=== PATIENT | female | born 1975 | race Caucasian/White ===

== ENCOUNTER 2016-12-20 10:57 | Emergency (ER) | payer OTHER ==
[2016-12-20 11:28] LABS: MANUAL DIFF NEEDED? NO
[2016-12-20 11:30] LABS: BASO% 0.5 % (0.0-0.8); EOS# 0.15 X1000 (0.0-0.7); EOS% 2.5 % (0.0-10.0); HEMATOCRIT 36.1 % (37.0-47.0); HEMOGLOBIN 11.7 g/dL (12.0-16.0); IMM GRAN# 0.01 X1000 (0.0-0.04); IMM GRAN% 0.2 % (0.0-0.5); LYMPH% 28.1 % (20.5-51.1); MCH 27.3 PG (27-31); MCHC 32.4 g/dL (33-37); MCV 84.3 FL (81-99); MONO# 0.33 X1000 (0.11-0.59); MONO% 5.5 % (1.7-9.3); NEUT% 63.2 % (42.2-75.2); PLT 258 X1000 (130-400); RBC 4.28 XMIL (4.2-5.4)
[2016-12-20 11:42] LABS: URINE CULTURE PL NEEDED? NO; URINE SOURCE CLEAN CATCH
[2016-12-20 11:55] LABS: UR AMPHETAMINES QUAL NONE DETECTED (NONE DETECT); UR BARBITUATES QUAL NONE DETECTED (NONE DETECT); UR BENZODIAZEPIN QUAL NONE DETECTED (NONE DETECT); UR CANNABINOIDS QUAL NONE DETECTED (NONE DETECT); UR COCAINE QUAL NONE DETECTED (NONE DETECT); UR MDMA QUAL NONE DETECTED (NONE DETECT); UR METHADONE QUAL NONE DETECTED (NONE DETECT); UR METHAMPHETAMINE QUAL NONE DETECTED (NONE DETECT); UR OPIATES QUAL NONE DETECTED (NONE DETECT); UR OXYCODONE QUAL NONE DETECTED (NONE DETECT); UR PCP QUAL NONE DETECTED (NONE DETECT); UR TCA QUAL NONE DETECTED (NONE DETECT)
[2016-12-20 11:56] LABS: AGAP 9; ALBUMIN 4.3 g/dL (3.5-5.0); ALKALINE PHOSPHATASE 99 U/L (32-104); BUN 12 mg/dL (8-22); CALCIUM 9.3 mg/dL (8.8-10.2); CHLORIDE 103 mmol/L (98-107); COSMO 272; GOT 13 U/L (10-30); GPT 10 U/L (10-36); SODIUM 136 mmol/L (136-145); TCO2 24 mmol/L (25-35); TOTAL PROTEIN 7.2 g/dL (6.3-8.3)
[2016-12-20 11:58] LABS: BILIRUBIN URINE NEGATIVE (NEGATIVE); BLOOD URINE NEGATIVE (NEGATIVE); CLARITY SL. CLOUDY (CLEAR); COLOR YELLOW; GLUCOSE URINE NEGATIVE (NEGATIVE); LEUKOCYTES URINE NEGATIVE (NEGATIVE); NITRITE URINE NEGATIVE (NEGATIVE); PROTEIN URINE TRACE mg/dL (NEGATIVE); UROBILINOGEN URINE NORMAL
[2016-12-20] MEDS ORDERED: ZOFRAN ODT ONE (12:09)
[2016-12-20 12:10] LABS: URINE EPITHELIAL CELLS >10 /HPF (<10)
[2016-12-20 12:19] LABS: FREE T4 0.9 ng/dL (0.93-1.70)
[2016-12-20] MEDS ORDERED: ZOFRAN PO ONE (12:36)
--- NOTE | 2016-12-20 12:39 | PROVIDER DOCUMENTATION ---
HPI-Psychological Disorder - General Chief Complaint: Psych Stated Complaint: psych, si Time Seen by Provider: 12/20/16 11:57 Source: patient Allergies/Adverse Reactions: Patient Allergies Allergy/AdvReac Type Severity Reaction Status Date / Time cephalexin monohydrate * Allergy Severe ANAPHYLAXIS Verified 12/20/16 11:06 [From Keflex] orphenadrine citrate * Allergy Severe ANAPHYLAXIS Verified 12/20/16 11:06 [From Norflex] amoxicillin [Amoxicillin] Allergy Intermediate SWELLING Verified 12/20/16 11:06 codeine [Codeine] Allergy Intermediate SWELLING Verified 12/20/16 11:06 dicyclomine HCl * Allergy Intermediate SWELLING Verified 12/20/16 11:06 [From Bentyl] hydrocodone [Hydrocodone] Allergy Intermediate SWELLING/RA Verified 12/20/16 11: 06 SH hydromorphone HCl * Allergy Intermediate SWELLING Verified 12/20/16 11:06 [From Dilaudid] morphine Allergy Intermediate ITCHING Verified 12/20/16 11:06 prednisone Allergy Intermediate SWELLING Verified 12/20/16 11:06 risperidone Allergy Intermediate SWELLING Verified 12/20/16 11:06 tramadol Allergy Intermediate SWELLING Verified 12/20/16 11:06 AND ITCHING escitalopram oxalate * Allergy Mild ITCHING Verified 12/20/16 11:06 [From Lexapro] sertraline HCl * Allergy Mild ITCHING Verified 12/20/16 11:06 [From Zoloft] sulfamethoxazole Allergy SWELLING Verified 12/20/16 11:06 [From Bactrim] trimethoprim [From Bactrim] Allergy SWELLING Verified 12/20/16 11:06 Home Medications: Home Medication List Medication Instructions Recorded Confirmed Last Taken Type Omeprazole [Prilosec] 40 mg PO BID 09/05/15 12/20/16 09/15/16 History Albuterol Sulfate Inhaler 2 puff INH Q6H PRN PRN 07/02/16 12/20/16 07/03/16 History [Ventolin Hfa] Atenolol 25 mg PO QHS 07/02/16 12/20/16 09/14/16 History Gabapentin [Neurontin] 300 mg PO TID 07/02/16 12/20/16 09/15/16 History Meclizine [Antivert] 12.5 mg PO TID #15 tablet 09/15/16 Unknown Rx Fluconazole [Diflucan] 100 mg PO DAILY #7 tablet 12/20/16 Unknown Rx Loratadine [Claritin] 10 mg PO DAILY #30 tablet 12/20/16 Unknown Rx Venlafaxine HCl [Effexor] 25 mg PO DAILY 12/20/16 12/20/16 Unknown History - History of Present Illness-Psych Nature of Presenting Problem: Pt is a 41 yof with a hx of anxiety and bipolar disorder that presents to er with cc of SI this am. Pt reports she no longer wants to kill herself or is having thoughts states that she has had a recent medication change and that she is suppose to follow up with her doctor tomorrow to get her medication changed back to what it was. Denies SI or HI at this time. Pt does complain of itchying all over states she just had a recent sunburn and now has breaking of the skin from clawing. Onset/Duration: reports: this morning Timing: reports: still present Severity: reports: moderate Situational problems related to:: reports: N/A Previous psych related hospitalizations?: Yes Patient arrived by:: private car Similar Symptoms Previously?: Yes Recently seen or treated by another doctor?: Yes Review of Systems - Adult - REVIEW OF SYSTEMS - ADULT Constitutional: denies: chills, fever, fatique Eyes: reports: no symptoms reported Ears, Nose, Mouth & Throat: reports: no symptoms reported Cardiovascular: denies: chest pain, irregular heart rate, orthopnea, syncope Respiratory: reports: no symptoms reported Gastrointestinal: reports: no symptoms reported Genitourinary: reports: no symptoms reported Musculoskeletal: reports: no symptoms reported Integumentary: reports: itching. denies: mole changes, nail changes Neurological: reports: no symptoms reported Psychiatric: reports: see HPI Endocrine: reports: no symptoms reported Hematologic/Lymphatic: reports: no symptoms reported Allergic/Immunologic: reports: no symptoms reported All Other Systems: Reviewed and Negative Past History - Adult - PAST MEDICAL HISTORY-ADULT Review of Records: reports: Nursing Assessment Review Major Childhood Illnesses: reports: denies history Cardiovascular: reports: HTN Respiratory: reports: COPD, sleep apnea Gastrointestinal: reports: GERD Obstetrical/Gynecological: reports: denies history Genitourinary: reports: denies history Musculoskeletal: reports: denies history Neurological: reports: denies history Psychiatric: reports: bipolar Endocrine/Immune: reports: denies history Other Conditions: reports: denies history - PRIOR SURGERIES/PROCEDURES Surgical/Procedure History: reports: cholecystectomy, BTL, , hernia repair, esophageal dilation, orthopedic (extremity) (R ankle, bilat knee) - PRIOR HOSPITALIZATIONS Prior Hospitalizations: reports: none - IMMUNIZATION STATUS Childhood Immunizations: See Nurse Assessment Flu Vaccine: See Nurse Assessment - FAMILY HISTORY Family History: reviewed, not pertinent - SOCIAL HISTORY Smoking: denies Substance Use: none/never Physical Exam-Psych Focus - Physical Exam-Psych Initial Vital Signs Reviewed: Yes Appearance: appropriate appearance, appropriate insight, neat, no apparent distress, alert Neurological: alert, normal mood/affect, calm, 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, oriented x 3 Behavior/Eye Contact/Speech: cooperative, good eye contact, normal speech Thoughts/Hallucinations: normal thought pattern, no apparent hallucination HENMT: normocephalic/atraumatic, moist mucous membranes, pharynx normal Neck: non-tender, full range of motion, supple, normal inspection Respiratory: chest non-tender, lungs clear, normal breath sounds, no pleuratic chest pain, no respiratory distress, no accessory muscle use Cardiovascular: regular rate, rhythm Abdominal Exam: normal bowel sounds, non tender, soft, no organomegaly, no pulsatile mass Extremity: normal range of motion, non-tender, normal capillary refill Integumentary: normal color, normal turgor, warm/dry, other (escoriations on pt back) Progress - PLAN OF CARE/RESULTS Progress/Plan/Lab Results: Orders Category Date Time Status ALCOHOL BLOOD Stat Lab 12/20/16 11:23 Received CBC WITH ELECTRONIC DIFF [HEME] Stat Lab 12/20/16 11:23 Completed COMPREHENSIVE METABOLIC PANEL [CHEM] Stat Lab 12/20/16 11:23 Completed FREE T4 Stat Lab 12/20/16 11:23 Results TEST-URINE [PREG] Stat Lab 12/20/16 11:20 Completed TSH Stat Lab 12/20/16 11:[address] W/POSS RFLX CULT [URINALYSIS] Stat Lab 12/20/16 11:20 Completed URINE DRUG SCREEN PL Stat Lab 12/20/16 11:20 Completed VITAMIN B12 Stat Lab 12/20/16 11:23 Results Ondansetron Odt [Zofran Odt] Med 12/20/16 12:09 Discontinued 4 mg .ROUTE .STK-MED ONE Vital Signs - 24 hr 03/23/17 10:57 Temperature 97.2 F L Pulse Rate 69 Respiratory 18 Rate Blood Pressure 153/98 O2 Sat by Pulse 100 Oximetry Laboratory Tests 12/20/16 12/20/16 12/20/16 11:20 11:20 11:20 WBC RBC Hgb Hct MCV MCH MCHC RDW Std Deviation Plt Count MPV Immature Gran % (Auto) Neut % (Auto) Lymph % (Auto) [place] % (Auto) Eos % (Auto) Baso % (Auto) Immature Gran # (Auto) Neut # (Auto) Lymph # (Auto) [place] # (Auto) Eos # (Auto) Baso # (Auto) Sodium Potassium Chloride Carbon Dioxide Anion Gap BUN Creatinine Estimated GFR/1.73 m2 BUN/Creatinine Ratio Glucose Calculated Osmolality Calcium Total Bilirubin AST ALT Alkaline Phosphatase Total Protein Albumin Globulin Albumin/Globulin Ratio TSH Free T4 Urine Source CLEAN CATCH Urine Color YELLOW Urine Clarity SL. CLOUDY A Urine pH 6.0 Ur Specific [place] 1.020 Urine Protein TRACE A Urine Ketones NEGATIVE Urine Blood NEGATIVE Urine Nitrite NEGATIVE Urine Bilirubin NEGATIVE Urine Urobilinogen NORMAL Urine Microscopic RBC Not Reportable Urine WBC NEGATIVE Ur Epithelial Cells >10 A Urine Bacteria 1+ Urine Glucose NEGATIVE Urine Test NEGATIVE Urine Opiates Screen NONE DETECTED Ur Oxycodone Screen NONE DETECTED Urine Methadone Screen NONE DETECTED Ur Barbituates Screen NONE DETECTED Ur Tricyclics Screen NONE DETECTED Ur Phencyclidine Scrn NONE DETECTED Ur Amphetamines Screen NONE DETECTED U Methamphetamines Scrn NONE DETECTED Urine MDMA Screen NONE DETECTED U Benzodiazepines Scrn NONE DETECTED Urine Cocaine Screen NONE DETECTED U Cannabinoids Screen NONE DETECTED 12/20/16 12/20/16 12/20/16 11:23 11:23 11:23 WBC 6.04 RBC 4.28 Hgb 11.7 L Hct 36.1 L MCV 84.3 MCH 27.3 MCHC 32.4 L RDW Std Deviation 14.9 H Plt Count 258 MPV 11.0 H Immature Gran % (Auto) 0.2 Neut % (Auto) 63.2 Lymph % (Auto) 28.1 [place] % (Auto) 5.5 Eos % (Auto) 2.5 Baso % (Auto) 0.5 Immature Gran # (Auto) 0.01 Neut # (Auto) 3.82 Lymph # (Auto) 1.70 [place] # (Auto) 0.33 Eos # (Auto) 0.15 Baso # (Auto) 0.03 Sodium 136 Potassium 4.0 Chloride 103 Carbon Dioxide 24 L Anion Gap 9 BUN 12 Creatinine 0.7 Estimated GFR/1.73 m2 > 60 BUN/Creatinine Ratio 17 Glucose 101 Calculated Osmolality 272 Calcium 9.3 Total Bilirubin 0.40 AST 13 ALT 10 Alkaline Phosphatase 99 Total Protein 7.2 Albumin 4.3 Globulin 3.0 Albumin/Globulin Ratio 1.0 TSH 0.72 Free T4 0.90 L Urine Source Urine Color Urine Clarity Urine pH Ur Specific [place] Urine Protein Urine Ketones Urine Blood Urine Nitrite Urine Bilirubin Urine Urobilinogen Urine Microscopic RBC Urine WBC Ur Epithelial Cells Urine Bacteria Urine Glucose Urine Test Urine Opiates Screen Ur Oxycodone Screen Urine Methadone Screen Ur Barbituates Screen Ur Tricyclics Screen Ur Phencyclidine Scrn Ur Amphetamines Screen U Methamphetamines Scrn Urine MDMA Screen U Benzodiazepines Scrn Urine Cocaine Screen U Cannabinoids Screen Pt has agreed to follow up with doctor tomorrow and reports she is ready for discharge. Departure - Departure Time of Disposition Order: 12:36 DIAGNOSIS: Bipolar disorder Qualifiers: Active/Remission status: remission status unspecified Qualified Code(s): F31.9 - Bipolar disorder, unspecified Disposition: HOME 01 Certified Medical Emergency: Emergent Condition: Stable Additional Instructions: Follow up with doctor tomorrow. ED Follow Up Instructions: You have been treated by a care provider in the Emergency Department. These instructions are being provided to you so you can have an understanding of how to care for yourself upon discharge. Upon discharge from the Emergency Department, you are responsible for making arrangements for follow-up care by a physician of your choice. Take all prescribed medications as directed. Return to the Emergency Department immediately for any new or worsening symptoms. You may call the Physician Referral phone number at [phone] to obtain a list of Physicians who are taking new patients. Prescriptions: Loratadine [Claritin] 10 mg PO DAILY #30 tablet Fluconazole [Diflucan] 100 mg PO DAILY #7 tablet Attestation - Scribe Verification/Attestation Scribe:: Belle Mckeon Acting as Scribe for:: Heri Garcia Scribe documention review:: This chart was documented by a scribe and accurately reflects the service the provider performed and the decisions made by the provider.
[2016-12-20 13:03] VITALS: BP 147/069
== END 2016-12-20 13:01 | disposition home or self-care (01) ==
LOC: P.ED 10:57
DX: F31.9 Bipolar disorder, unspecified (principal); L29.9 Pruritus, unspecified; I10 Essential (primary) hypertension; J44.9 Chronic obstructive pulmonary disease, unspecified; K21.9 Gastro-esophageal reflux disease without esophagitis; F41.9 Anxiety disorder, unspecified; Z79.899 Other long term (current) drug therapy
CPT/HCPCS: 36415; 80053; 80305; 81001; 81025; 82607; 84439; 84443; 85025; 99284; G0480; 80320